=== PATIENT | male | born 1955 | race African-American/Black ===

== ENCOUNTER 2019-04-25 17:49 | Emergency (ER) | payer OTHER ==
[~2019-04-25] VITALS: Ht 170.2 cm; Wt 116.5 kg
[2019-04-25 20:16] LABS: BASOPHILS # (AUTO) 0.03 x10^3/uL (0-0.1); BASOPHILS % (AUTO) 0 % (0-1); EOSINOPHILS # (AUTO) 0.06 x10^3/uL (0-0.4); EOSINOPHILS % (AUTO) 0 % (1-7); LYMPHOCYTES # (AUTO) 1.93 x10^3/uL (1-3.4); LYMPHOCYTES % (AUTO) 14 % (22-44); MD NO; MEAN CORPUSCULAR HEMOGLOBIN 30.1 pg (27.5-34.5); MEAN CORPUSCULAR HGB CONC 33.2 g/dL (33.2-36.2); MEAN CORPUSCULAR VOLUME 90.7 fL (81-97); MEAN PLATELET VOLUME 8.4 fL (7.4-10.4); MONOCYTES # (AUTO) 0.88 x10^3/uL (0.2-0.8); MONOCYTES % (AUTO) 6 % (2-9); NEUTROPHILS # (AUTO) 10.93 x10^3/uL (1.8-6.8); NEUTROPHILS % (AUTO) 79 % (42-75); PLATELET COUNT 327 x10^3/uL (130-400); RED CELL DISTRIBUTION WIDTH 14.6 % (9.4-14.8)
[2019-04-25 20:31] LABS: CHLORIDE 103 mmol/L (98-107)
--- NOTE | 2019-04-25 20:33 | NUR ---
CT PENDING CREATINE/LAB
[2019-04-25 20:43] LABS: ALANINE AMINOTRANSFERASE 36 U/L (12-78); ALBUMIN 3.9 g/dL (3.4-5.0); ALKALINE PHOSPHATASE 95 U/L (45-117); ANION GAP 8 mmol/L (5-15); BILIRUBIN,TOTAL 0.5 mg/dL (0.2-1.0); CALCIUM 9.9 mg/dL (8.5-10.1); CREATININE 2.27 mg/dL (0.7-1.3); TOTAL PROTEIN 7.9 g/dL (6.4-8.2)
[2019-04-25 21:04] LABS: MICROSCOPIC AUTO
[2019-04-25 21:05] LABS: CULTURE INDICATED? NO
--- NOTE | 2019-04-25 21:14 | NUR ---
193 Patient ambulated to room, into gown. Patient c/o left abdominal pain radiating to the back. Provider to bedside, patient reports having a history of kidney stones and reports feels similar
--- NOTE | 2019-04-25 21:15 | NUR ---
RN to bedside, blanket provided. CT to bedside, informed of elevated creatinine and change to scan without contrast. patient to CT.
--- NOTE | 2019-04-25 21:39 | NUR ---
Patient back from CT scan. Sleeping in bed.
[2019-04-25] MEDS ORDERED: ONDANSETRON ODT 4 MG ONE (22:22)
[2019-04-25] MEDS ORDERED: HYDROcodone/APAP 5/325 TABLET ONE (22:23)
[2019-04-25 22:25] VITALS: BP 163/92
[2019-04-25] MEDS ORDERED: HYDROcodone/APAP 5/325 TABLET PO ONE (22:30)
[2019-04-25] MEDS ORDERED: ONDANSETRON ODT 4 MG PO ONE (22:30)
== END 2019-04-25 22:32 | disposition home or self-care (01) ==
LOC: ED 22:21
DX: N20.1 Calculus of ureter (principal); N17.9 Acute kidney failure, unspecified; E11.9 Type 2 diabetes mellitus without complications
CPT/HCPCS: 36415; 74176; 80053; 81001; 83690; 85025; 99284; Q0162